=== PATIENT | female | born 2000 | race Two or more races ===

== ENCOUNTER 2025-02-17 19:51 | Observation (INO) | payer MEDICAID ==
[~2025-02-17] VITALS: Ht 160 cm; Wt 76.2 kg
--- NOTE | 2025-02-17 21:05 | DVH ---
LIMITED OB ULTRASOUND > 14 WKS: HISTORY: NO PNC TECHNIQUE: Multiple real-time grayscale images of the gravid uterus with duplex Doppler color flow an d M-mode spectral analysis. TRANSDUCER: C1-6 COMPARISON: None FINDINGS: IUP single live fetus at 34 weeks, 6 days based on composite averages of the BPD, head circumference, abdominal circumference and femur length Estimated weight 2440 grams heart rate 153 beats per minute LULÚ 18.2 cm Cervix is closed and measures 3.97 cm in length. Cephalic Presentation Grade 2 Placenta without previa or abruption. IMPRESSION: 1. IUP single live fetus at 34 weeks, 6 days AUA corresponding to an SHANNON of March 25, 2025 2. No acute findings identified
[2025-02-17] MEDS ORDERED: TERBUTALINE SULFATE 1 MG/ML 1ML VIAL SC ONE (21:17)
[2025-02-17 21:46] LABS: Fern Testing Negative
[2025-02-17 21:50] LABS: Urine Amorphous Crystal FEW /hpf (None Seen); Urine Protein, UAD TRACE (Negative)
[2025-02-17 21:51] LABS: Vaginal Bacteria Few; Vaginal Clue Cells Few; Vaginal Epithelial Cells Few; Vaginal Trichomonas Not Present
[2025-02-17] MEDS: TERBUTALINE SULFATE 1 MG/ML 1ML VIAL SC SCH (21:52)
[2025-02-17] MEDS: LACTATED RINGER'S 1,000 ML IV ONE (21:55)
[2025-02-17 22:16] LABS: Amphetamine Screen, Urine Neg (NEGATIVE); Barbiturate Scree,Urine Neg (NEGATIVE); Benzodiazephine Screen, Urine Neg (NEGATIVE); Cannabinoid Screen, Urine Neg (NEGATIVE); Cocaine Screen, Urine Neg (NEGATIVE); Opiate Scree,Urine Neg (NEGATIVE); Phencyclidine Screen, Urine Neg (NEGATIVE)
[2025-02-17] MEDS ORDERED: PREN-96 PO (22:19)
[2025-02-17] MEDS ORDERED: METR-344 PO (22:22)
[2025-02-17] MEDS ORDERED: CEPH250C PO (22:22)
--- NOTE | 2025-02-18 13:36 | DVHDS2 ---
Physician Discharge Progress N Final Diagnosis: dizziness Operations or Procedures: Operations or Procedures nst raective brody claire Condition on Discharge: Good Disposition: Home Discharge Instructions: Diet: Regular Activity: No Restrictions, As Tolerated Follow Up/Referral: ESTABLISH CARE WITH A PRIMARY GLASS SCIENCE ENGINEER IMMEDIATELY. Medications: CONTINUE TAKING VITAMINS. BEGIN TAKIN.) KEFLEX 500MG BY MOUTH EVERY 6 HRS X7 DAYS 2.) FLAGYL 500MG BY MOUTH EVERY EVERY 8HRS X7 DAYS Follow Up Care: Specialist: 1w Discharge Statement: "Patient was advised to return to the ER or call 911 if any headaches, dizziness, shortness of breath, chest pain, abdominal pain, bleeding, fevers, or worsening of medical condition. Patient was counseled about treatment plan, medications, possible side effects, patientverbalized understanding. All questions were answered to the best of my ability. This discharge took greater then 30 minutes in planning, reviewing documentation , counseling the patient, and discussing with other team members." Visit Coding OBGYN Date of Service: Feb 17, 2025 Billing Provider: JASON GARDINER DO PERSONAL CONSULTANT Common Visit Codes: 44674-[id number] OBS CARE (HIGH) PERSONAL CONSULTANT Procedure Codes: 47211-82- NON-STRESS TEST JASON GARDINER DO Feb 18, 2025 13:36
== END 2025-02-17 22:45 | disposition home or self-care (01) ==
LOC: LDRP 19:51
PROVIDERS: ADMIT Obstetrics & Gynecology; ATTEND Obstetrics & Gynecology
DX: O26.893 Other specified pregnancy related conditions, third trimester (principal); R42 Dizziness and giddiness; Z98.890 Other specified postprocedural states; Z79.899 Other long term (current) drug therapy; Z3A.36 36 weeks gestation of pregnancy
CPT/HCPCS: 59025; 76805; 80307; 81001; 81002; 87210; 96360; 96361; 96372; G0378; J3105; Q0114